=== PATIENT | female | born 1970 | race Asian ===

== ENCOUNTER 2018-03-31 05:22 | Day surgery (SDC) | payer BC ==
[2018-03-29 16:26] VITALS: BMI 32.1
--- NOTE | 2018-03-31 06:35 | HP ---
History & Physical Update - History History: No Change - Physical Physical: No Change - Assessment Assessment: No Change - Plan Plan: No Change (No change in HP)
[2018-03-31] MEDS ORDERED: ACETAMINOPHEN 325 MG TABLET (FP) PO PRN (10:23)
[2018-03-31] MEDS ORDERED: IBUPROFEN 400 MG TABLET (FP) PO PRN (10:24)
[2018-03-31] MEDS ORDERED: PROPOFOL 20 ML ONE ×3 (12:25→12:43)
[2018-03-31] MEDS ORDERED: MIDAZOLAM HCL 2 MG/2 ML SINGLE DOSE VIAL ONE (12:25)
[2018-03-31] MEDS ORDERED: LIDOCAINE HCL/PF 2% SDV 5ML VIAL ONE (12:25)
[2018-03-31] MEDS ORDERED: DEXAMETHASONE SOD PHOSPHATE 4 MG/1 ML VIAL ONE (12:53)
[2018-03-31] MEDS ORDERED: KETOROLAC TROMETHAMINE 30 MG/1 ML VIAL ONE (13:08)
[2018-03-31] MEDS ORDERED: ONDANSETRON 4 MG/2 ML VIAL IVPUSH PRN (13:39)
[2018-03-31] MEDS ORDERED: oxyCODONE HCL 5 MG TABLET PO PRN (13:39)
[2018-03-31] MEDS ORDERED: ACETAMINOPHEN 1000 MG/100 ML VIAL (NON FORMULARY) IVPB PRN (13:40)
[2018-03-31] MEDS ORDERED: LACTATED RINGERS SOLUTION 1,000 ML IV SCH (13:45)
--- NOTE | 2018-03-31 13:55 | OP ---
DATE OF OPERATION: 03/31/2018 PREOPERATIVE DIAGNOSIS: Endometrial polyp or myoma. POSTOPERATIVE DIAGNOSIS: Low-grade cervical dysplasia, as well as endometrial polyp or myoma. OPERATION: Hysteroscopic myomectomy, suction dilation and curettage and cervical loop electrosurgical excision procedure. SURGEON: Fransisca Peng M.D. ANESTHESIA: General. ANESTHESIOLOGIST: Keshia Gimenez MD PROCEDURE: Patient was taken to the operating room and placed in dorsal lithotomy position, prepped and draped in the usual sterile fashion. A timeout was performed in accordance to hospital regulation. Speculum was placed in the vagina. Anterior lip of the cervix was grasped with single-tooth tenaculum. The cervix was then dilated to accommodate the operative hysteroscope. The operative hysteroscope was inserted and a large 3 cm endometrial polyp or myoma was seen. Cautery and cutting of the endometrial polyp was done and polypectomy and myomectomy was then performed. A large 3 cm myoma was removed with multiple contents. Suction dilation and curettage was then performed. Endometrial cavity was then noted to be normal. Attention was then drawn to the cervix, where a cervical LEEP was then performed. Cautery of the cervix was then done. Hemostasis was achieved. Estimated blood loss was probably 50 mL. FRANSISCA PENG M.D. [id number]
[2018-03-31 15:07] VITALS: TEMP 98
[2018-03-31 18:57] VITALS: BP 138/76; PULSE 91
--- NOTE | 2018-04-04 16:54 | PATH ---
Surgical Pathology Report Patient Name: SEBASTIAN BLACKBURN [facility]. Rec. #: [id number] /Age/Gender: 1970 (Age: 47) / F Account: [id number] Location: [facility] Taken: 03/31/2018 Received: 04/01/2018 Reported: 04/04/2018 Physicians: Fransisca Peng M.D. Specimen(s) Received A: UTERINE MYOMA B: CERVICAL LEEP BIOPSY C: ENDOMETRIAL CURETTINGS Clinical History Abnormal menstrual bleeding, myoma of the uterus Final Diagnosis A. UTERINE MYOMA: ENDOMETRIAL POLYP, FRAGMENTS. B. CERVICAL LEEP BIOPSY: CERVICAL TISSUE WITH CHRONIC INFLAMMATION AND FOCAL SQUAMOUS METAPLASIA. NEGATIVE FOR DYSPLASIA. C. ENDOMETRIAL CURETTINGS: ENDOMETRIAL POLYP. SEPARATE FIBRINOUS EXUDATE AND SCANTY WEAKLY PROLIFERATIVE ENDOMETRIUM. FRAGMENTS OF UNREMARKABLE SQUAMOUS EPITHELIUM. Electronically Signed Otilia Ngo M.D. Gross Description A. Received in formalin labeled "uterine myoma," is a 5 g, 5.0 x 4.2 x 0.6 cm aggregate of multiple jenkins, irregular to fragmented portions of firm to rubbery tissue. Store Receiver sections are submitted in 5 cassettes. B. Received in formalin labeled "cervical LEEP biopsy," is a 1.3 x 0.7 x 0.3 cm unoriented portion of soft tissue which is partially surfaced by a jenkins mucosa, consistent with a portion of cervix. There is no definite cervical os identified. The specimen is inked blue, serially sectioned and entirely submitted in 2 cassettes. C. Received in formalin labeled "endometrial curettings," is a 4.3 x 3.4 x 0.5 cm aggregate of brown soft tissue fragments. The formalin is filtered and the specimen is entirely submitted in 3 cassettes. DL/04/01/2018 saudi04/01/2018
== END 2018-03-31 17:45 | disposition home or self-care (01) ==
LOC: JASU-SURG 05:22
PROVIDERS: ATTEND Obstetrics & Gynecology
PROC: 0UBC7ZX Excision of Cervix, Via Natural or Artificial Opening, Diagnostic (ICD-10-PCS; 2018-03-31)
PROC: 0UB98ZX Excision of Uterus, Via Natural or Artificial Opening Endoscopic, Diagnostic (ICD-10-PCS; principal; 2018-03-31 11:30)
PROC: 0UDB7ZX Extraction of Endometrium, Via Natural or Artificial Opening, Diagnostic (ICD-10-PCS; 2018-03-31 11:30)
PROC: 0UB98ZZ Excision of Uterus, Via Natural or Artificial Opening Endoscopic (ICD-10-PCS; 2018-03-31 11:30)
DX: N84.0 Polyp of corpus uteri (principal); N87.0 Mild cervical dysplasia; D25.9 Leiomyoma of uterus, unspecified
CPT/HCPCS: 88305-TC; 94760